=== PATIENT | female | born 1985 | race Caucasian/White ===

== ENCOUNTER 2016-11-02 20:00 | Outpatient (CLI) | payer MEDICAID ==
[~2016-11-02] VITALS: Ht 149.9 cm; Wt 56.3 kg
[2016-11-02 20:17] VITALS: Ht 149.9 cm; Wt 56.3 kg
[2016-11-02 20:19] VITALS: BP 104/50; PULSE 67; RESP 18
[2016-11-02 20:39] LABS: URINE BLOOD (Dip) POC Negative (NEGATIVE)
[2016-11-02 22:20] LABS: ADD UMIC YES; UR ASCORBIC ACID NEGATIVE (NEGATIVE); UR BACTERIA FEW /HPF (NONE SEEN); UR BILIRUBIN (Dip) NEGATIVE (NEGATIVE); UR BLOOD (Dip) NEGATIVE (NEGATIVE); UR CLARITY SLIGHTLY CLOUDY (CLEAR); UR COLOR YELLOW (YELLOW); UR GLUCOSE (Dip) NEGATIVE (NEGATIVE); UR KETONES (Dip) NEGATIVE (NEGATIVE); UR LEUKOCYTE ESTERASE (Dip) 1+ Leu/ul (NEGATIVE); UR NITRITE (Dip) NEGATIVE (NEGATIVE); UR RBC 1 /HPF (0-5); UR SPECIFIC GRAVITY (Dip) 1.025 (1.003-1.030); UR SQUAMOUS EPITHELIAL CELL FEW /HPF (FEW); UR TOTAL PROTEIN (Dip) NEGATIVE (NEGATIVE); UR UROBILINOGEN (Dip) 2+ mg/dL (NEGATIVE)
--- NOTE | 2016-11-02 22:47 | RADRPT ---
PROCEDURE: Obstetrical ultrasound greater than 14 weeks CLINICAL INDICATION: labor TECHNIQUE: Real time sonographic imaging of the gravid uterus is performed transabdominally and mu ltiple static zavala scale and Doppler images are submitted for review as are measurements. The image s are reviewed on the PACS. COMPARISON: No relevant exams are available FINDINGS: The cervical os is closed with a normal cervical length of 3.4 cm. There is a single living intrauterine gestation in cephalic presentation. The heart beat is estimated at 139 bpm. Placenta is posterior and grade 0. There is no evidence of placenta previa or abruption. The amniotic fluid appears qualitatively normal RPTAT:HJJR IMPRESSION: 1. Single viable intrauterine gestation in cephalic presentation with the closed cervix length estim ated at 3.4 cm. 2. Posterior grade 0 placenta without placenta previa or abruption. Physician Katy Date Time Electronically viewed and signed by Physician Katy on 11/02/2016 22:46 /
--- NOTE | 2016-11-02 23:27 | PN ---
Triage Information Date/Time 11/02/1605/17/2319 Reason for visit: back pain for 3days Weeks of Gestation 23w2d /Para primigravida Diabetes: none Hypertention: none Objective Vital Signs Date Time Temp Pulse Resp B/P Pulse Ox O2 Delivery O2 Flow Rate FiO2 11/02/16 20:19 98.6 67 18 104/50 Room Air Heart Rate: 140's Contractions: None Results/Medications Results 24 hrs Laboratory Tests Test 11/02/16 20:20 11/02/16 20:47 Urine Color YELLOW Urine Clarity SLIGHTLY CLOUDY A Urine pH 6.0 Urine Specific [place] 1.025 Urine Ketones NEGATIVE Urine Nitrite NEGATIVE Urine Bilirubin NEGATIVE Urine Urobilinogen 2+ H Urine Leukocyte Esterase 1+ H Urine Microscopic RBC 1 Urine Microscopic WBC 1 Urine Squamous Epithelial Cells FEW Urine Calcium Oxalate Crystals FEW A Urine Bacteria FEW A Urine Hemoglobin NEGATIVE Urine Glucose NEGATIVE Urine Total Protein NEGATIVE Bedside Urine pH (LAB) 6.5 Bedside Urine Protein (LAB) Negative Bedside Urine Glucose (UA) Negative Bedside Urine Ketones (LAB) Negative Bedside Urine Blood Negative Bedside Urine Nitrite (LAB) Negative Bedside Urine Leukocyte Esterase (L Trace H Imaging Results CVL 3.4 closed Disposition: Discharge Assessment/Plan IUP 23w2d back pain NIL Sx improved after hydration Plan discharge home F/U with her OB urine culture sent need to be f/u ISABELLA CASTREJON MD Nov 02, 2016 23:27
--- NOTE | 2016-11-02 23:52 | TRIAGE ---
OB Triage Datetime Report Generated by CPN: 11/02/2016 23:52 Datetime: 11/02/2016 23:22 Stage of : OB Triage Datetime: 11/02/2016 23:10 Stage of : OB Triage Datetime: 11/02/2016 23:06 Stage of : OB Triage Datetime: 11/02/2016 23:03 Stage of : OB Triage Labor Evaluation Frequency: OCCASIONALLY Monitor Mode: External Duration (sec)2399: 50-60 Quality: Mild Heart Rate FHR Baseline Rate: 146 Monitor Mode: Doppler Pain Assessment Pain Scale: 2 Pain Goal: 3 Datetime: 11/02/2016 22:35 Stage of : OB Triage Maternal Assessment Level of Consciousness: Fully Conscious Labor Evaluation Frequency: OCCASIONALLY Monitor Mode: External Duration (sec)2399: 40-50 Heart Rate FHR Baseline Rate: 148 Monitor Mode: Doppler Pain Assessment Pain Scale: 6 Pain Presence: Constant Pain Type: Pressure Pain Goal: 4 Datetime: 11/02/2016 21:44 Contraction Comments: TOCO OUT OF PLACE DUE TO US TECH AT BEDSIDE FOR CL . Datetime: 11/02/2016 21:39 Stage of : OB Triage Maternal Assessment Level of Consciousness: Fully Conscious Labor Evaluation Frequency: NONE Monitor Mode: External Heart Rate FHR Baseline Rate: 142 Monitor Mode: Doppler Pain Assessment Pain Scale: 6 Pain Presence: Constant Pain Type: Pressure Pain Goal: 4 Datetime: 11/02/2016 21:30 Stage of : OB Triage Datetime: 11/02/2016 21:27 Stage of : OB Triage Datetime: 11/02/2016 21:04 Stage of : OB Triage Datetime: 11/02/2016 20:56 Stage of : OB Triage Datetime: 11/02/2016 20:46 Arrived By: Wheelchair Arrived From: Home Chief Complaint: PT C/O BACK PAIN 10/09 Movement: Absent Contractions: Denies/Absent Patient Complaints: Other Initial Plan: TOCO ADN DOPPLAR, PHYSICAL EXAM AND NOTIFY MD. Datetime: 11/02/2016 20:30 Stage of : OB Triage Maternal Assessment Level of Consciousness: Fully Conscious DTR's/Clonus: DTRs 2+; No Clonus Headache: Denies Blurred Vision: No Respiratory Effort: Unlabored; Regular Rhythm Breath Sounds, Left: Clear and Equal Breath Sounds, Right: Clear and Equal Nausea/Vomiting: Denies Lower Extremities Edema: None Upper Extremities Edema: None Temperature Route: Oral Fall Risk Assessment History of Falling: (0) No Labor Evaluation Frequency: NONE Monitor Mode: External Heart Rate FHR Baseline Rate: 148 Monitor Mode: Doppler Pain Assessment Pain Scale: 8 Pain Presence: Constant Pain Type: Pressure Pain Location: Back (Annotations: LEFT ) Datetime: 11/02/2016 20:10 Stage of : OB Triage
== END 2016-11-02 23:24 | disposition home or self-care (01) ==
LOC: OBT 20:00 → L-D 20:01 → OBT 23:24
PROVIDERS: ATTEND Obstetrics & Gynecology
DX: O26.892 Other specified pregnancy related conditions, second trimester (principal); Z3A.23 23 weeks gestation of pregnancy; M54.9 Dorsalgia, unspecified
CPT/HCPCS: 76817; 81001; 87086; Z7500; 81003; G0463

== ENCOUNTER 2017-01-27 16:41 | Outpatient (CLI) | payer MEDICAID ==
[~2017-01-27] VITALS: Ht 152.4 cm; Wt 60.1 kg
[2017-01-27 17:16] VITALS: Ht 152.4 cm; Wt 60.1 kg
[2017-01-27] MEDS ORDERED: LACTATED RINGER'S 1,000 ML IV SCH (17:30)
[2017-01-27 17:54] LABS: BASOPHILS % 0.2 % (0.0-2.0); EOSINOPHILS % 0.3 % (0.0-7.0); HEMATOCRIT 32.5 % (37.0-47.0); HEMOGLOBIN 11.2 g/dl (12.0-16.0); LYMPHOCYTES # 1.7 10^3/ul (0.8-2.9); LYMPHOCYTES % 18.5 % (15.0-51.0); MEAN CORPUSCULAR HEMOGLOBIN 30.9 pg (29.0-33.0); MEAN CORPUSCULAR HGB CONC 34.5 g/dl (32.0-37.0); MEAN CORPUSCULAR VOLUME 89.8 fl (82.0-101.0); MEAN PLATELET VOLUME 9.9 fl (7.4-10.4); MONOCYTE # 0.4 10^3/ul (0.3-0.9); MONOCYTES % 4.9 % (0.0-11.0); NEUTROPHIL # 6.7 10^3/ul (1.6-7.5); NEUTROPHILS % 75.8 % (39.0-77.0); PLATELET COUNT 300 10^3/UL (140-415); RED BLOOD COUNT 3.62 10^6/ul (4.20-5.40); RED CELL DISTRIBUTION WIDTH 13.2 % (11.5-14.5); WHITE BLOOD COUNT 8.9 10^3/ul (4.8-10.8)
--- NOTE | 2017-01-27 17:55 | RADRPT ---
PROCEDURE: Obstetrical ultrasound for biophysical profile CLINICAL INDICATION: Biophysical profile. . TECHNIQUE: Obstetrical ultrasound of the uterus for biophysical profile. Transabdominal views are obtained. COMPARISON: 01/01/2017 FINDINGS: Single intrauterine gestation. Presentation: Cephalic. Placenta: Posterior No evidence of placental abruption. No evidence of placenta previa. breathing movement = 2/2 tone = 2/2 motion = 2/2 DEWEY = 2/2 DEWEY = 14.7 cm heart rate: 132 beats per minute IMPRESSION: Single intrauterine gestation. Biophysical profile 10/07 RPTAT: AADD .Scooby Cai MD, MD Date Time Electronically viewed and signed by .Scooby Cai MD, on 01/27/2017 17:54 .B/
[2017-01-27 18:12] LABS: ALBUMIN 3.5 g/dl (3.3-4.9); ALBUMIN/GLOBULIN RATIO 1.02; BILIRUBIN,INDIRECT 0.2 mg/dl (0-1.1); BILIRUBIN,TOTAL 0.2 mg/dl (0.2-1.3); CALCIUM 8.9 mg/dl (8.4-10.2); CREATININE 0.65 mg/dl (0.44-1.00); POTASSIUM 3.9 mmol/L (3.5-5.1); TOTAL PROTEIN 6.9 g/dl (6.1-8.1)
[2017-01-27] MEDS ORDERED: TERBUTALINE 1 MG/ML INJ SC ONE ×2 (18:30→20:30)
[2017-01-27 19:39] LABS: ADD UMIC YES; UR ASCORBIC ACID NEGATIVE (NEGATIVE); UR BACTERIA FEW /HPF (NONE SEEN); UR BILIRUBIN (Dip) NEGATIVE (NEGATIVE); UR BLOOD (Dip) NEGATIVE (NEGATIVE); UR CLARITY CLEAR (CLEAR); UR COLOR YELLOW (YELLOW); UR GLUCOSE (Dip) NEGATIVE (NEGATIVE); UR KETONES (Dip) NEGATIVE (NEGATIVE); UR LEUKOCYTE ESTERASE (Dip) 1+ Leu/ul (NEGATIVE); UR NITRITE (Dip) NEGATIVE (NEGATIVE); UR RBC 1 /HPF (0-5); UR SPECIFIC GRAVITY (Dip) 1.013 (1.003-1.030); UR SQUAMOUS EPITHELIAL CELL FEW /HPF (FEW); UR TOTAL PROTEIN (Dip) NEGATIVE (NEGATIVE); UR UROBILINOGEN (Dip) NEGATIVE (NEGATIVE)
--- NOTE | 2017-01-28 00:32 | PN ---
Triage Information Date/Time 01/18/17 Reason for visit: generalized itching sensation for 3 weeks Weeks of Gestation 35w4d /Para Diabetes: none Hypertention: none Additional information serum bile acid drawn result pending patient has RX for ursodiol Objective Vital Signs Date Time Temp Pulse Resp B/P Pulse Ox O2 Delivery O2 Flow Rate FiO2 01/27/17 17:17 98.6 Intake and Output 01/27/17 01/27/17 01/28/17 14:59 22:59 06:59 Intake Total 700 ml Balance 700 ml Heart Rate Comments NST reactive Contractions: 6-10 Minutes Apart Exam VE closed and long -3 uc q4-6min resolved after IV hydration and terb Results/Medications Result Diagram: 01/27/17172901/27/17 173 Results 24 hrs Laboratory Tests Test 01/27/17 17:00 01/27/17 17:30 Urine Color YELLOW Urine Clarity CLEAR Urine pH 7.0 Urine Specific [place] 1.013 Urine Ketones NEGATIVE Urine Nitrite NEGATIVE Urine Bilirubin NEGATIVE Urine Urobilinogen NEGATIVE Urine Leukocyte Esterase 1+ H Urine Microscopic RBC 1 Urine Microscopic WBC 3 Urine Squamous Epithelial Cells FEW Urine Bacteria FEW A Urine Hemoglobin NEGATIVE Urine Glucose NEGATIVE Urine Total Protein NEGATIVE White Blood Count 8.9 Red Blood Count 3.62 L Hemoglobin 11.2 L Hematocrit 32.5 L Mean Corpuscular Volume 89.8 Mean Corpuscular Hemoglobin 30.9 Mean Corpuscular Hemoglobin Concent 34.5 Red Cell Distribution Width 13.2 Platelet Count 300 Mean Platelet Volume 9.9 Neutrophils % 75.8 Lymphocytes % 18.5 Monocytes % 4.9 Eosinophils % 0.3 Basophils % 0.2 Nucleated Red Blood Cells % 0.0 Neutrophils # 6.7 Lymphocytes # 1.7 Monocytes # 0.4 Eosinophils # 0.0 Basophils # 0.0 Nucleated Red Blood Cells # 0.0 Sodium Level 137 Potassium Level 3.9 Chloride Level 105 Carbon Dioxide Level 19 L Anion Gap 17 H Blood Urea Nitrogen 9 Creatinine 0.65 Glucose Level 99 Calcium Level 8.9 Total Bilirubin 0.2 Direct Bilirubin 0.00 Indirect Bilirubin 0.2 Aspartate Amino Transf (AST/SGOT) 29 Alanine Aminotransferase (ALT/SGPT) 48 Alkaline Phosphatase 206 H Total Protein 6.9 Albumin 3.5 Globulin 3.40 H Albumin/Globulin Ratio 1.02 Medications Current Medications Lactated Ringer's (Lr) 1,000 ml @ 250 mls/hr Q4H IV Last administered on 01/27t 17:34; Admin Dose 250 MLS/HR; Start 01/27/17 at 17:30 Imaging Results BPP 10/07 DEWEY 14.7 Disposition: Discharge Assessment/Plan IUP 35w4d choleshesis PTL resolved Plan d/s home will be f/u at [facility] prn take ursodiol as RXed ISABELLA CASTREJON MD Jan 28, 2017 00:32
--- NOTE | 2017-01-28 01:46 | TRIAGE ---
OB Triage Datetime Report Generated by CPN: 01/28/2017 01:46 Datetime: 01/27/2017 23:50 Stage of : OB Triage Assessment Type: Triage Labor Evaluation Frequency: Irregular Monitor Mode: External Duration (sec)2399: 40-100 Quality: Mild Pattern: Normal: <= 5 Contractions in 10 Minutes Resting Tone Opdyke: Relaxed Heart Rate FHR Baseline Rate: 150 Monitor Mode: External US Variability: Moderate 6-25 bpm Accelerations: 15X15 Decelerations: None Pain Assessment Pain Scale: 0 Pain Presence: None/Denies Pain Type: N/A Pain Assessment Comments: Pt continues to deny any pain or cramping Datetime: 01/27/2017 23:20 Stage of : OB Triage Pain Assessment Pain Scale: 0 Pain Presence: None/Denies Pain Type: N/A Datetime: 01/27/2017 23:00 Labor Evaluation Frequency: IRRITABILITY NOTED/ IRREGULAR CONTRACTIONS Monitor Mode: External Quality: Mild Pattern: Normal: <= 5 Contractions in 10 Minutes Resting Tone Opdyke: Relaxed Heart Rate FHR Baseline Rate: 145 Monitor Mode: External US FHR Baseline Changes: No Baseline Change Variability: Moderate 6-25 bpm Accelerations: 15X15 Decelerations: None Category: Category I Datetime: 01/27/2017 22:00 Labor Evaluation Frequency: IRRITABILITY NOTED/ IRREGULAR CONTRACTIONS Monitor Mode: External Quality: Mild Pattern: Normal: <= 5 Contractions in 10 Minutes Resting Tone Opdyke: Relaxed Heart Rate FHR Baseline Rate: 145 Monitor Mode: External US FHR Baseline Changes: No Baseline Change Variability: Moderate 6-25 bpm Accelerations: 15X15 Decelerations: None Category: Category I Datetime: 01/27/2017 21:00 Labor Evaluation Frequency: IRRITABILITY NOTED/ IRREGULAR CONTRACTIONS Monitor Mode: External Quality: Mild Pattern: Normal: <= 5 Contractions in 10 Minutes Resting Tone Opdyke: Relaxed Heart Rate FHR Baseline Rate: 135 Monitor Mode: External US FHR Baseline Changes: No Baseline Change Variability: Moderate 6-25 bpm Accelerations: 15X15 Decelerations: None Category: Category I Datetime: 01/27/2017 20:00 Monitor Mode: External Quality: Mild Pattern: Normal: <= 5 Contractions in 10 Minutes Resting Tone Opdyke: Relaxed Contraction Comments: IRRITABILITY NOTED/ IRREGULAR CONTRACTIONS Heart Rate FHR Baseline Rate: 145 Monitor Mode: External US FHR Baseline Changes: No Baseline Change Variability: Moderate 6-25 bpm Accelerations: 15X15 Decelerations: None Category: Category I Datetime: 01/27/2017 19:17 Assessment Type: Triage Maternal Assessment Level of Consciousness: Fully Conscious DTR's/Clonus: DTRs 2+; No Clonus Headache: Denies Blurred Vision: No Respiratory Effort: Unlabored; Regular Rhythm; Equal Expansion Breath Sounds, Left: Clear and Equal Breath Sounds, Right: Clear and Equal Nausea/Vomiting: Denies RUQ Epigastric Pain: Denies Lower Extremities Edema: None Degree: None Upper Extremities Edema: None Degree: None Facial Edema: None Fall Risk Assessment History of Falling: (0) No Secondary Diagnosis: (0) No Ambulatory Aid: (0) Bedrest/Nurse Assist IV Therapy: (0) No Gait: (0) Normal/Bedrest/Immobile Mental Status: (0) Oriented to Own Ability Fall Score: 0 Fall Risk Score Definition: No Risk: No action required Pain Assessment Pain Scale: 0 Pain Presence: None/Denies Datetime: 01/27/2017 19:10 Stage of : OB Triage Datetime: 01/27/2017 19:08 Stage of : OB Triage Maternal Assessment Level of Consciousness: Fully Conscious DTR's/Clonus: DTRs 1+ Headache: Denies Breath Sounds, Left: Clear and Equal Breath Sounds, Right: Clear and Equal Nausea/Vomiting: Denies RUQ Epigastric Pain: Denies Labor Evaluation Frequency: NONE Monitor Mode: External Resting Tone Opdyke: Relaxed Heart Rate FHR Baseline Rate: 135 Monitor Mode: External US Variability: Moderate 6-25 bpm Accelerations: 15X15 Decelerations: None Category: Category I Pain Assessment Pain Scale: 0 Pain Presence: None/Denies Pain Type: N/A Pain Goal: 3 Vaginal Exam Membrane Status: Intact Datetime: 01/27/2017 18:40 Stage of : OB Triage Maternal Assessment Level of Consciousness: Fully Conscious DTR's/Clonus: DTRs 1+ Headache: Denies Breath Sounds, Left: Clear and Equal Breath Sounds, Right: Clear and Equal Nausea/Vomiting: Denies RUQ Epigastric Pain: Denies Labor Evaluation Frequency: 2-4 Monitor Mode: External Duration (sec)2399: 50-80 Quality: Mild Pattern: Normal: <= 5 Contractions in 10 Minutes Resting Tone Opdyke: Relaxed Heart Rate FHR Baseline Rate: 135 Monitor Mode: External US Variability: Moderate 6-25 bpm Accelerations: 15X15 Decelerations: None Category: Category I Pain Assessment Pain Scale: 0 Pain Presence: None/Denies Pain Type: N/A Pain Goal: 3 Vaginal Exam Membrane Status: Intact Datetime: 01/27/2017 18:20 Stage of : OB Triage Maternal Assessment Level of Consciousness: Fully Conscious DTR's/Clonus: DTRs 1+ Headache: Denies Breath Sounds, Left: Clear and Equal Breath Sounds, Right: Clear and Equal Nausea/Vomiting: Denies RUQ Epigastric Pain: Denies Monitor Mode: External Duration (sec)2399: 50-80 Quality: Mild Pattern: Normal: <= 5 Contractions in 10 Minutes Resting Tone Opdyke: Relaxed Heart Rate FHR Baseline Rate: 135 Monitor Mode: External US Variability: Moderate 6-25 bpm Accelerations: 15X15 Decelerations: None Category: Category I Pain Assessment Pain Scale: 0 Pain Presence: None/Denies Pain Type: N/A Pain Goal: 3 Vaginal Exam Membrane Status: Intact Datetime: 01/27/2017 17:21 Maternal Assessment Level of Consciousness: Fully Conscious DTR's/Clonus: DTRs 1+ Headache: Denies Blurred Vision: No Respiratory Effort: Unlabored Breath Sounds, Left: Clear and Equal Breath Sounds, Right: Clear and Equal Nausea/Vomiting: Denies RUQ Epigastric Pain: Denies Facial Edema: None Labor Evaluation Frequency: 4-7 Monitor Mode: External Duration (sec)2399: 50-80 Quality: Mild Pattern: Normal: <= 5 Contractions in 10 Minutes Resting Tone Opdyke: Relaxed Heart Rate FHR Baseline Rate: 135 Monitor Mode: External US Variability: Moderate 6-25 bpm Accelerations: 15X15 Decelerations: None Category: Category I Pain Assessment Pain Scale: 0 Pain Presence: None/Denies Pain Type: N/A Pain Goal: 3 Vaginal Exam Membrane Status: Intact Datetime: 01/27/2017 16:57 Assessment Type: Triage Maternal Assessment Level of Consciousness: Fully Conscious DTR's/Clonus: DTRs 2+; No Clonus Headache: Denies Blurred Vision: No Respiratory Effort: Unlabored; Regular Rhythm; Equal Expansion Breath Sounds, Left: Clear and Equal Breath Sounds, Right: Clear and Equal Nausea/Vomiting: Denies RUQ Epigastric Pain: Denies Lower Extremities Edema: None Degree: None Upper Extremities Edema: None Degree: None Facial Edema: None Fall Risk Assessment History of Falling: (0) No Secondary Diagnosis: (0) No Ambulatory Aid: (0) Bedrest/Nurse Assist IV Therapy: (0) No Gait: (0) Normal/Bedrest/Immobile Mental Status: (0) Oriented to Own Ability Fall Score: 0 Fall Risk Score Definition: No Risk: No action required Datetime: 01/27/2017 16:33 Time of Arrival: 01/27/2017 16:33 EGA: 35.4 Arrived By: Ambulatory Arrived From: Office Chief Complaint: PT CAME IN C/O OF SEVERE ITCHING SINCE 3 WEEKS AGO. PT SEEING AT CLINIC AND REFER RED HERE Movement: Present Contractions: Denies/Absent Rupture of Membranes: Denies Vaginal Discharge: Denies Recent Sexual Intercouse: Denies Abdominal Trauma: Not Applicable Additional Patient Complaints: NONE Initial Plan: MONITOR, NST, BPP, CMP, CBC, UA , IV HYDRATION Datetime: 11/02/2016 20:46 Time of Arrival: 11/02/2016 19:54 EGA: 23.2 Movement: Present Time Provider Notified: 11/02/2016 21:02 (Annotations: Data stored by CPN on behalf of user)
== END 2017-01-27 23:50 | disposition home or self-care (01) ==
LOC: OBT 16:41 → L-D 16:42 → OBT 23:50
PROVIDERS: ATTEND Obstetrics & Gynecology
DX: O26.893 Other specified pregnancy related conditions, third trimester (principal); Z3A.35 35 weeks gestation of pregnancy; L29.9 Pruritus, unspecified
CPT/HCPCS: 36415; 76818; 80053; 81001; 85025; 96360; 96361; 96372; J3105; J7120; Z7500; G0463

== ENCOUNTER 2017-02-06 07:30 | Inpatient (IN) | payer MEDICAID ==
[~2017-02-06] VITALS: Ht 152.4 cm; Wt 61.0 kg
[2017-02-06] MEDS ORDERED: BUTORPHANOL 2 MG INJ IV PRN (08:30)
[2017-02-06] MEDS ORDERED: IBUPROFEN 600 MG TAB PO PRN (08:30)
[2017-02-06] MEDS ORDERED: OXYTOCIN 30 UNITS/LR 500 ML IV PRN (08:30)
[2017-02-06] MEDS ORDERED: CARBOPROST 250 MCG INJ IM PRN (08:30)
[2017-02-06] MEDS ORDERED: MISOPROSTOL 200 MCG TAB PR PRN (08:30)
[2017-02-06] MEDS ORDERED: LIDOCAINE 1% (MPF) 30 ML INJ INJ PRN (08:30)
[2017-02-06] MEDS ORDERED: METHYLERGONOVINE 0.2 MG INJ IM PRN (08:30)
[2017-02-06] MEDS ORDERED: OXYTOCIN 30 UNITS/LR 500 ML IV SCH ×2 (08:30)
[2017-02-06 10:05] LABS: BASOPHILS % 0.4 % (0.0-2.0); EOSINOPHILS % 0.4 % (0.0-7.0); HEMOGLOBIN 11.7 g/dl (12.0-16.0); MEAN CORPUSCULAR HEMOGLOBIN 30.6 pg (29.0-33.0); MEAN CORPUSCULAR HGB CONC 34.4 g/dl (32.0-37.0); MEAN PLATELET VOLUME 10.1 fl (7.4-10.4); MONOCYTE # 0.3 10^3/ul (0.3-0.9); MONOCYTES % 4.1 % (0.0-11.0); NEUTROPHIL # 5.8 10^3/ul (1.6-7.5); NEUTROPHILS % 70.7 % (39.0-77.0); PLATELET COUNT 312 10^3/UL (140-415); RED BLOOD COUNT 3.82 10^6/ul (4.20-5.40); RED CELL DISTRIBUTION WIDTH 13.5 % (11.5-14.5); WHITE BLOOD COUNT 8.1 10^3/ul (4.8-10.8)
[2017-02-06 10:13] VITALS: Ht 152.4 cm; Wt 61.0 kg
[2017-02-06 10:16] VITALS: BP 117/63; PULSE 82; RESP 18
[2017-02-06] MEDS: LACTATED RINGER'S 1,000 ML IV SCH ×3 (10:19→21:15)
[2017-02-06 10:25] LABS: INR 0.82; PROTIME 11.4 Sec (11.9-14.9); PT RATIO 0.9
[2017-02-06 10:27] LABS: PARTIAL THROMBOPLASTIN TIME 24.1 Sec (25.0-35.0)
[2017-02-06] MEDS ORDERED: DINOPROSTONE 10 MG VAG SUPP VAG ONE (11:00)
--- NOTE | 2017-02-06 11:04 | RADRPT ---
PROCEDURE: US OB. CLINICAL INDICATION: Induction TECHNIQUE: Multiple sonographic images of the pelvis were obtained. The images were reviewed on a PACS workstation. COMPARISON: No prior studies are available for comparison. FINDINGS: There is a single live intrauterine . cardiac activity is identified at a rate of 14 4 beats per minute. presentation is cephalic. Placenta is posterior grade II. Biophysical profile score is as follows: Breathing 2 Movements 2 Tone 2 Fluid volume 2 Amniotic fluid index = 9.4 cm Total biophysical profile score = 8/8 IMPRESSION: Biophysical profile score = 8/8 RPTAT: HH .David Jackson MD, MD Date Time Electronically viewed and signed by .David Jackson MD, on 02/06/2017 11:04 .W/
--- NOTE | 2017-02-06 11:12 | RADRPT ---
PROCEDURE: US OB. CLINICAL INDICATION: Size and dates , induction TECHNIQUE: Multiple sonographic images of the pelvis and gravid uterus were obtained. The images were reviewed on a PACS workstation. COMPARISON: No prior studies are available for comparison. FINDINGS: There is a single viable intrauterine gestation. Cardiac activity is present with 140 beats per min marcie. There is a vertex presentation. The placenta is posterior. There is no evidence for an abruption or placenta previa. Measurements were made in order to determine age. The results are as follows: BPD =8.3 cm HC =31 cm AC =33.5 cm FL =6.7 cm Estimated gestational age of approximately 34 weeks and 6 days based on ultrasound measurements. Clinical age: 37 weeks and 0 days. The estimated date of delivery is 03/14/17, based on ultrasound measurements. The EFW = 2785 g, 26.3%, based on LMP age. RPTAT: AA IMPRESSION: Single viable intrauterine gestation of approximately 34 weeks and 6 days based on ultrasound measu rements. .Wood Keith MD, MD Date Time Electronically viewed and signed by .Wood Keith MD, on 02/06/2017 11:11 .S/
[2017-02-06] MEDS ORDERED: PNV11TAB PO (11:29)
[2017-02-06] MEDS ORDERED: URSO300C21 PO (11:30)
[2017-02-06] MEDS ORDERED: FERR15DR5 PO (11:31)
[2017-02-06] MEDS ORDERED: IRON1TAB78 PO (11:32)
--- NOTE | 2017-02-06 15:23 | HP ---
Date/Time of Note Date/Time of Note DATE: 02/06/17 TIME: 15:18 OB - History Hx of Present Free Text/Dictation 31-year-old female 1 para 0 at 37 weeks admitted for induction of labor because of cholestasis Last Menstrual Period: Jun 12, 2016 Estimated Due Date: Feb 27, 2017 : 1 Para: 0 Care: Good Care Ultrasounds: No ultrasounds, Normal mid trimester US Obstetrical Complications: Other (Cholestasis in ) Medical Complications: None Past Family/Social History * Past Medical, Surgical, Family and Obstetric Histories reviewed from chart. Blood Type: O+ Rubella: immune RPR/VDRL: Negative GBS Status: Negative HBsAG: Negative OB Admission Exam Vital Signs Vital Signs Vital Signs Date Time Temp Pulse Resp B/P Pulse Ox O2 Delivery O2 Flow Rate FiO2 02/06/17 10:16 98.4 82 18 117/63 97 Physical Exam HEENT: WNL Heart: Rhythm Normal Lungs: Clear, Equal Abdomen: WNL Extremities: Normal Reflexes: Normal Cervical Dilatation: Fingertip Effacement: 0% Station: -3 Membranes: Intact Heart Rate: 140's Accelerations: Accelerations Present Decelerations: No Decelerations Varibility: Marked Contractions on Admission: None Last 72 hours Lab Results CBC & BMP 02/06/17 09:45 OB Assessment/Plan Reason for admission: induction of labor Other Assessment: Cholestasis of 37 weeks gestation Other plan: Start induction with Cervidil GEMINI TALAVERA MD Feb 06, 2017 15:23
[2017-02-06] MEDS: URSODIOL 300 MG CAP PO SCH (17:33)
[2017-02-07] MEDS: LACTATED RINGER'S 1,000 ML IV SCH ×3 (05:08→22:50)
[2017-02-07] MEDS: URSODIOL 300 MG CAP PO SCH ×3 (07:51→17:15)
[2017-02-07] MEDS ORDERED: DINOPROSTONE 10 MG VAG SUPP VAG ONE (13:00)
[2017-02-08] MEDS: LACTATED RINGER'S 1,000 ML IV SCH ×2 (07:32→17:07)
[2017-02-08] MEDS: URSODIOL 300 MG CAP PO SCH ×3 (08:30→17:30)
--- NOTE | 2017-02-08 10:23 | PN ---
Date/Time of Note Date/Time of Note Late entry DATE: 02/07/17 OB Subjective Subjective Subjective Patient has no complaint of uterine contractions OB Objective Objective Objective Vital signs stable General physical exam is normal On electronic monitoring heart tones appeared reactive Cervix stayed long and closed OB Assessment/Plan Reason for admission: induction of labor Other Assessment: 37 weeks gestation with cholestasis Other plan: Repeat Cervidil GEMINI TALAVERA MD Feb 08, 2017 10:23
--- NOTE | 2017-02-08 10:35 | PN ---
Date/Time of Note Date/Time of Note DATE: 02/08/17 TIME: 10:34 OB Subjective Subjective Subjective No complaint of labor contractions OB Objective Objective Objective Vital signs stable in general physical exam is unchanged Cervix is 30% 1 cm mid position OB Assessment/Plan Reason for admission: induction of labor Other Assessment: 37 weeks gestation with cholestasis Other plan: We will assess the patient in this p.m. or next a.m. If patient cervical dilatation is advanced 2 cm with proceed with Pitocin augmentation If not 2 cm we will consider reducing patient home with repeating the process and 24-48 hour GEMINI TALAVERA MD Feb 08, 2017 10:35
[2017-02-09] MEDS: LACTATED RINGER'S 1,000 ML IV SCH ×2 (01:29→07:57)
[2017-02-09] MEDS: URSODIOL 300 MG CAP PO SCH ×3 (07:56→17:36)
--- NOTE | 2017-02-09 16:32 | RADRPT ---
PROCEDURE: US OB. CLINICAL INDICATION: well-being TECHNIQUE: Multiple sonographic images of the pelvis were obtained. The images were reviewed on a PACS workstation. COMPARISON: No prior studies are available for comparison. FINDINGS: There is a single live intrauterine . cardiac activity is identified at a rate of 12 6 beats per minute. presentation is cephalic. Placenta is fundal the left grade II. Biophysical profile score is as follows: Breathing 2 Movements 2 Tone 2 Fluid volume 2 Amniotic fluid index = 12.0 cm Total biophysical profile score = 8/ IMPRESSION: Biophysical profile score = 10/07 RPTAT: HH .David Jackson MD, MD Date Time Electronically viewed and signed by .David Jackson MD, on 02/09/2017 16:32 .W/
--- NOTE | 2017-02-09 17:34 | DS ---
Date/Time of Note Date/Time of Note Patient with no cervical change 2 days cervix stayed at 3040% on 1 cm with presenting part vertex at -2 -3 station After discussing the situation with the patient this service intends to reinduce patient in 48 hours DATE: 02/09/17 TIME: 17:32 Obstetrical Discharge Record Final Diagnosis Final Diagnosis: Term not delivered Other Final Diagnosis Failed induction Complications Other (Cholestasis of ) Induction: Yes Condition on Discharge Physical Assessment Voiding: Yes Bowel Movement: Yes Breast: Soft, non-tender, Filling Fundus: Other () Abdomen and Incision: Abdomen is gravid fundal height was 38 estimation of weight was 3000 g plus minus Episiotomy: Not applicable Calf Tenderness: No Patient Condition: Good GEMINI TALAVERA MD Feb 09, 2017 17:33
--- NOTE | 2017-02-09 17:35 | PD.PPDC ---
COMPLIANCE SPEC Discharge Instruction Provider Information Physician Information 31-year-old female admitted for induction of labor because of cholestasis and had failed induction This service intends to restart induction of 48 hours Patient had normal biophysical profile and reactive NST in hospital Diagnosis Final Diagnosis: Failed induction Condition Patient Condition: Good Diet Diet: Resume Regular Diet Activity/Restrictions Activity: Normal Activity May Shower Restrictions: Nothing in the Vagina Follow-up Follow-up with Physician: 2, Day/Days (Labor and delivery for induction) Return to clinic for OB Instructions: Breast Tenderness Depression Blurried Vision Headache Comment: Refer back to labor and delivery at 48 hour for induction GEMINI TALAVERA MD Feb 09, 2017 17:35
== END 2017-02-09 18:10 | disposition home or self-care (01) | DRG 775 ==
LOC: L-D 08:12
PROVIDERS: ADMIT Obstetrics & Gynecology; ATTEND Obstetrics & Gynecology
DX: O26.62 Liver and biliary tract disorders in childbirth (principal); K83.1 Obstruction of bile duct; O47.1 False labor at or after 37 completed weeks of gestation; Z3A.37 37 weeks gestation of pregnancy
CPT/HCPCS: 76816; 76818; 85025; 85610; 85730; 86592; 86900; 86901; 87340; J7120

== ENCOUNTER 2017-02-10 14:10 | Inpatient (IN) | payer MEDICAID ==
[~2017-02-10] VITALS: Ht 152.4 cm; Wt 60.7 kg
[~2017-02-10 14:10] MED LIST: IRON1TAB78 PO; PNV11TAB PO; URSO300C21 PO
[2017-02-10 14:29] VITALS: Ht 152.4 cm; Wt 60.7 kg
[2017-02-10 14:30] VITALS: BP 107/56; PULSE 88; RESP 18
--- NOTE | 2017-02-10 16:40 | RADRPT ---
PROCEDURE: US OB biophysical profile. CLINICAL INDICATION: Decreased movements. Possible leaking amniotic fluid. TECHNIQUE: Multiple sonographic images of the pelvis were obtained. The images were reviewed on a PACS workstation. COMPARISON: 02/09/2017 FINDINGS: There is a viable intrauterine gestation. There is a normal amount of amniotic fluid with an DEWEY = 14.7 cm. Cardiac activity is present with 137 beats per minute. The placenta is posterior. No evidence of placenta previa or abruption. Biophysical profile: movement 2/2 tone 2/2. breathing 2/2 DEWEY 2/2 Total 10/07 IMPRESSION: Normal biophysical profile. Estimated gestational age: 37 weeks and 4 days RPTAT:AAJJ Physician Bronson Date Time Electronically viewed and signed by Physician Bronson on 02/10/2017 16:40 /
--- NOTE | 2017-02-10 17:17 | HP ---
Date/Time of Note Date/Time of Note DATE: 02/10/17 TIME: 17:14 OB - History Hx of Present Free Text/Dictation 31-year-old female admitted in latent phase of labor complaining of a spontaneous rupture of membrane at 39+ weeks Chief Complaint: Spontaneous rupture of membranes Last Menstrual Period: May 08, 2016 Estimated Due Date: Feb 12, 2017 : 3 Para: 2 Care: Good Care Ultrasounds: Normal mid trimester US Obstetrical Complications: None Medical Complications: None Past Family/Social History * Past Medical, Surgical, Family and Obstetric Histories reviewed from chart. Blood Type: O+ Rubella: immune RPR/VDRL: Negative GBS Status: Negative HBsAG: Negative OB Admission Exam Vital Signs Vital Signs Vital Signs Date Time Temp Pulse Resp B/P Pulse Ox O2 Delivery O2 Flow Rate FiO2 02/10/17 14:30 98.9 88 18 107/56 96 Room Air Physical Exam HEENT: WNL Heart: Rhythm Normal Lungs: Clear, Equal Abdomen: WNL Extremities: Normal Reflexes: Normal Cervical Dilatation: 3cm Effacement: 75% Station: -3 Membranes: Ruptured Amniotic Fluid: Clear Heart Rate: 130's Accelerations: Accelerations Present Decelerations: No Decelerations Varibility: Marked Contractions on Admission: 6-10 Minutes Apart Date/Time Contractions Began: February 10, 2017 few hours prior to admission Frequency of Contractions: Every 10-15 minutes Duration: Over 60 seconds Intensity: Mild OB Assessment/Plan Other Assessment: Term gestation Spontaneous rupture of membranes Other plan: We will try to augment labor with Pitocin GEMINI TALAVERA MD Feb 10, 2017 17:17
--- NOTE | 2017-02-10 17:44 | HP ---
Date/Time of Note Date/Time of Note DATE: 02/10/17 TIME: 17:41 OB - History Hx of Present Free Text/Dictation Admitted for re-augmentation of labor because of spontaneous contractions and a slight advancement of his cervical dilatation over 1 day Last Menstrual Period: Jun 13, 2007 Estimated Due Date: Feb 27, 2017 : 1 Para: 0 Care: Good Care Ultrasounds: Normal mid trimester US Obstetrical Complications: Other (Cholestasis of ) Medical Complications: None Past Family/Social History * Past Medical, Surgical, Family and Obstetric Histories reviewed from chart. Blood Type: O+ Rubella: immune RPR/VDRL: Negative GBS Status: Negative HBsAG: Negative OB Admission Exam Vital Signs Vital Signs Vital Signs Date Time Temp Pulse Resp B/P Pulse Ox O2 Delivery O2 Flow Rate FiO2 02/10/17 14:30 98.9 88 18 107/56 96 Room Air Physical Exam HEENT: WNL Heart: Rhythm Normal Lungs: Clear, Equal Abdomen: WNL Extremities: Normal Reflexes: Normal Cervical Dilatation: 2cm Effacement: 50% Station: -3 Membranes: Intact Heart Rate: 140's Accelerations: Accelerations Present Decelerations: No Decelerations Varibility: Marked Contractions on Admission: < 5 Minutes Apart Date/Time Contractions Began: February 10, 2017 in a.m. Frequency of Contractions: Every 3 4 minutes Intensity: Mild OB Assessment/Plan Other Assessment: Cholestasis of at 37+ weeks Other plan: Augment labor with Pitocin GEMINI TALAVERA MD Feb 10, 2017 17:44
[2017-02-10] MEDS ORDERED: LIDOCAINE 1% (MPF) 30 ML INJ INJ PRN (18:00)
[2017-02-10] MEDS ORDERED: OXYTOCIN 30 UNITS/LR 500 ML IV SCH (18:00)
[2017-02-10] MEDS ORDERED: MISOPROSTOL 200 MCG TAB PR PRN (18:00)
[2017-02-10] MEDS ORDERED: OXYTOCIN 30 UNITS/LR 500 ML IV PRN (18:00)
[2017-02-10] MEDS ORDERED: METHYLERGONOVINE 0.2 MG INJ IM PRN (18:00)
[2017-02-10] MEDS ORDERED: CARBOPROST 250 MCG INJ IM PRN (18:00)
[2017-02-10] MEDS ORDERED: IBUPROFEN 600 MG TAB PO PRN (18:00)
[2017-02-10] MEDS ORDERED: BUTORPHANOL 2 MG INJ IV PRN (18:00)
[2017-02-10] MEDS: LACTATED RINGER'S 1,000 ML IV SCH ×2 (18:09→20:30)
[2017-02-10 18:29] LABS: BASOPHILS % 0.2 % (0.0-2.0); EOSINOPHILS % 0.1 % (0.0-7.0); HEMATOCRIT 34.9 % (37.0-47.0); HEMOGLOBIN 12.2 g/dl (12.0-16.0); LYMPHOCYTES # 1.5 10^3/ul (0.8-2.9); LYMPHOCYTES % 13.7 % (15.0-51.0); MEAN CORPUSCULAR VOLUME 88.6 fl (82.0-101.0); MEAN PLATELET VOLUME 9.7 fl (7.4-10.4); MONOCYTE # 0.3 10^3/ul (0.3-0.9); MONOCYTES % 2.8 % (0.0-11.0); NEUTROPHIL # 8.9 10^3/ul (1.6-7.5); NEUTROPHILS % 82.7 % (39.0-77.0); PLATELET COUNT 325 10^3/UL (140-415); RED BLOOD COUNT 3.94 10^6/ul (4.20-5.40); RED CELL DISTRIBUTION WIDTH 13.3 % (11.5-14.5); WHITE BLOOD COUNT 10.7 10^3/ul (4.8-10.8)
[2017-02-10 18:45] LABS: INR 0.93; PROTIME 12.5 Sec (11.9-14.9)
[2017-02-10 18:46] LABS: PARTIAL THROMBOPLASTIN TIME 25.6 Sec (25.0-35.0)
[2017-02-11] MEDS: LACTATED RINGER'S 1,000 ML IV SCH ×3 (04:31→21:08)
--- NOTE | 2017-02-11 19:48 | PN ---
Date/Time of Note Date/Time of Note DATE: 02/11/17 TIME: 19:47 OB Subjective Subjective Subjective No complaint of labor contractions OB Objective Objective Objective Vital signs are normal on general physical exam is unchanged Cervical exam is 2 cm, 60/70% effaced, presenting part is vertex at -2 station Artificial rupture of membranes occurred Amniotic fluid appears clear We will continue with Pitocin augmentation OB Assessment/Plan Reason for admission: induction of labor Other Assessment: 37+ weeks gestation Cholestasis of Other plan: Continue with Pitocin augmentation after artificial rupture GEMINI TALAVERA MD Feb 11, 2017 19:48
[2017-02-11] MEDS: LACTATED RINGER'S 1,000 ML IV PRN ×2 (21:19→22:25)
[2017-02-11] MEDS ORDERED: FENTAnyl 2MCG/ML-ROPIV 0.2% 100 ML ONE (21:25)
[2017-02-11] MEDS ORDERED: OXYTOCIN 30 UNITS/LR 500 ML IV SCH ×2 (21:30)
[2017-02-11] MEDS ORDERED: morphine 2 MG INJ IV PRN (22:00)
[2017-02-11] MEDS ORDERED: morphine 4 MG/ML VIAL IV PRN (22:00)
[2017-02-11] MEDS ORDERED: KETOROLAC 30 MG INJ IV PRN (22:00)
[2017-02-11] MEDS ORDERED: ZOLPIDEM 5 MG TAB PO PRN (22:00)
[2017-02-11] MEDS ORDERED: NALOXONE (0.4 MG/ML) INJ IV PRN (22:00)
[2017-02-11] MEDS ORDERED: ONDANSETRON 4 MG INJ IV PRN (22:00)
[2017-02-11] MEDS ORDERED: FENTAnyl 2MCG/ML-ROPIV 0.2% 100 ML BAG EPI SCH (22:00)
[2017-02-11] MEDS ORDERED: DIPHENHYDRAMINE 50 MG INJ IV PRN (22:00)
[2017-02-12] MEDS ORDERED: AMPICILLIN 2 GM/NS (PMX) 100 ML IV ONE (04:30)
[2017-02-12] MEDS: LACTATED RINGER'S 1,000 ML IV SCH (07:40)
[2017-02-12] MEDS ORDERED: AMPICILLIN 1 GM/NS (PMX) 50 ML IV SCH (08:30)
--- NOTE | 2017-02-12 10:41 | LDN ---
Date/Time of Note Date/Time of Note DATE: 02/12/17 TIME: 10:38 Delivery Summary Vacuum extraction of a viable over midline episiotomy with Apgars 8 and 9 Vacuum extraction was done because of the variable deceleration of heart tones and tachycardia Weeks of Gestation 37 weeks and 6 days Assisted Vaginal Delivery: Vacuum (Vacuum extraction was done because of variable deceleration of FHTs in tachycardia) Placenta Delivered: Spontaneously, Intact & Complete Meconium: Particulate Episiotomy: Yes Indication for episiotomy Vacuum extraction Shortening of a second stage because of a variable deceleration of heart tones Perineal laceration: 0 Laceration repair: Midline episiotomy was repaired in layers using 2-0 Vicryl in deep layers 2-0 chromic and superficial layer Anesthesia type: Epidural Estimated blood loss: 500 Sponge & Needle done & correct: Yes All needle counts correct: Yes Any foreign bodies felt in the: No Problems: Delivery Information Sex Infant Sex: female Apgars 1 Minute: 8 5 Minute: 9 Suctioning Nose & mouth suctioned at jerome: Yes Delee suction performed: No Umbilical Cord Umbilical cord with: 3 Vessels Cord presentations: no nuchal cord Cord Blood was obtained: Yes Mother & Baby Disposition Disposition Mom & Baby to Maternity; Good: Yes (Mother and baby were recovered in good condition) Mom transferred to: Other (Maternity) Baby to NICU: No GEMINI TALAVERA MD Feb 12, 2017 10:41
[2017-02-12 13:00] VITALS: BP 105/66; PULSE 98; RESP 18
[2017-02-12 13:30] VITALS: BP 100/54; PULSE 95; RESP 18
[2017-02-12] MEDS ORDERED: OXYTOCIN 30 UNITS/LR 500 ML IV PRN (14:30)
[2017-02-12] MEDS ORDERED: LANOLIN 7 GM TUBE TOP PRN (14:30)
[2017-02-12] MEDS ORDERED: HYDROCODONE/APAP (5/325) TAB PO PRN ×2 (14:30)
[2017-02-12] MEDS ORDERED: CARBOPROST 250 MCG INJ IM PRN (14:30)
[2017-02-12] MEDS ORDERED: WITCH HAZEL/GLYCERIN PAD PR PRN (14:30)
[2017-02-12] MEDS ORDERED: BENZOCAINE 20% 56 ML SPRAY TOP PRN (14:30)
[2017-02-12] MEDS ORDERED: METHYLERGONOVINE 0.2 MG INJ IM PRN (14:30)
[2017-02-12] MEDS ORDERED: DIBUCAINE 1% 30 GM OINT PR PRN (14:30)
[2017-02-12] MEDS ORDERED: MISOPROSTOL 200 MCG TAB PR PRN (14:30)
[2017-02-12] MEDS ORDERED: ZOLPIDEM 5 MG TAB PO PRN (14:30)
[2017-02-12 16:00] VITALS: BP 99/54; PULSE 96; RESP 18
[2017-02-12] MEDS: LACTATED RINGER'S 1,000 ML IV* SCH ×2 (16:35→22:03)
[2017-02-12] MEDS: IBUPROFEN 600 MG TAB PO SCH (18:43)
[2017-02-12] MEDS: CEPHALEXIN 500 MG CAP PO SCH (18:43)
[2017-02-12 21:00] VITALS: BP 103/57; PULSE 102; RESP 20
[2017-02-12] MEDS: MAGNESIUM HYDROXIDE 30ML CUP PO SCH ×2 (21:00→21:29)
[2017-02-12] MEDS: SENNA/DOCUSATE NA (8.6MG/50MG) TAB PO SCH (21:29)
[2017-02-13] VITALS: BP 90/52; PULSE 72; RESP 19
[2017-02-13] MEDS: CEPHALEXIN 500 MG CAP PO SCH ×4 (00:23→17:51)
[2017-02-13] MEDS: IBUPROFEN 600 MG TAB PO SCH ×4 (00:23→17:52)
[2017-02-13 04:45] VITALS: BP 95/48; PULSE 76; RESP 20
[2017-02-13 08:00] VITALS: BP 88/55; PULSE 79; RESP 18
[2017-02-13 10:42] LABS: BASOPHIL # 0.1 10^3/ul (0.0-0.1); BASOPHILS % 0.2 % (0.0-2.0); EOSINOPHILS # 0.1 10^3/ul (0.0-0.5); EOSINOPHILS % 0.3 % (0.0-7.0); HEMATOCRIT 25.4 % (37.0-47.0); HEMOGLOBIN 8.7 g/dl (12.0-16.0); LYMPHOCYTES % 14.6 % (15.0-51.0); MEAN CORPUSCULAR HEMOGLOBIN 30.7 pg (29.0-33.0); MEAN CORPUSCULAR HGB CONC 34.3 g/dl (32.0-37.0); MEAN CORPUSCULAR VOLUME 89.8 fl (82.0-101.0); MONOCYTE # 0.9 10^3/ul (0.3-0.9); MONOCYTES % 4.2 % (0.0-11.0); NEUTROPHIL # 16.5 10^3/ul (1.6-7.5); PLATELET COUNT 283 10^3/UL (140-415); RED BLOOD COUNT 2.83 10^6/ul (4.20-5.40); RED CELL DISTRIBUTION WIDTH 13.5 % (11.5-14.5); WHITE BLOOD COUNT 20.6 10^3/ul (4.8-10.8)
--- NOTE | 2017-02-13 14:38 | PD.PPDC ---
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
[2017-02-13] MEDS ORDERED: IBUP-1542 PO (14:39)
[2017-02-13 17:03] VITALS: BP 96/50; RESP 16
[2017-02-13 20:30] VITALS: BP 97/48; PULSE 60; RESP 20
[2017-02-13] MEDS: SENNA/DOCUSATE NA (8.6MG/50MG) TAB PO SCH (21:00)
[2017-02-13] MEDS: MAGNESIUM HYDROXIDE 30ML CUP PO SCH (21:00)
[2017-02-14] MEDS: CEPHALEXIN 500 MG CAP PO SCH ×3 (00:26→11:50)
[2017-02-14] MEDS: IBUPROFEN 600 MG TAB PO SCH ×3 (00:26→11:50)
[2017-02-14 04:00] VITALS: BP 96/52; PULSE 62; RESP 19
[2017-02-14 08:00] VITALS: BP 100/55; PULSE 54; RESP 17
[2017-02-14] MEDS: MAGNESIUM HYDROXIDE 30ML CUP PO SCH (09:00)
[2017-02-14] MEDS ORDERED: DIPHTH/TET/ACEL PERTUSS (ADULT) 0.5 ML VIAL IM* ONE (09:00)
[2017-02-14] MEDS: SENNA/DOCUSATE NA (8.6MG/50MG) TAB PO SCH (09:00)
[2017-02-14] MEDS ORDERED: MEASLES,MUMPS,RUBELLA VACCINE INJ SC* ONE (09:00)
[2017-02-14] MEDS ORDERED: VARICELLA VACCINE LIVE/PF 1,350 UNIT/0.5 ML ML SC* ONE (09:00)
[2017-02-14 10:53] LABS: BASOPHILS % 0.1 % (0.0-2.0); EOSINOPHILS % 0.2 % (0.0-7.0); HEMATOCRIT 24.3 % (37.0-47.0); HEMOGLOBIN 8.2 g/dl (12.0-16.0); LYMPHOCYTES # 1.6 10^3/ul (0.8-2.9); LYMPHOCYTES % 13.6 % (15.0-51.0); MEAN CORPUSCULAR HEMOGLOBIN 30.3 pg (29.0-33.0); MEAN CORPUSCULAR HGB CONC 33.7 g/dl (32.0-37.0); MEAN CORPUSCULAR VOLUME 89.7 fl (82.0-101.0); MEAN PLATELET VOLUME 9.7 fl (7.4-10.4); MONOCYTE # 0.3 10^3/ul (0.3-0.9); MONOCYTES % 2.7 % (0.0-11.0); NEUTROPHIL # 9.7 10^3/ul (1.6-7.5); NEUTROPHILS % 82.5 % (39.0-77.0); PLATELET COUNT 292 10^3/UL (140-415); RED BLOOD COUNT 2.71 10^6/ul (4.20-5.40); RED CELL DISTRIBUTION WIDTH 13.4 % (11.5-14.5); WHITE BLOOD COUNT 11.8 10^3/ul (4.8-10.8)
== END 2017-02-14 17:35 | disposition home or self-care (01) | DRG 775 ==
LOC: L-D 14:10 → OBT 14:10 → L-D 17:45 → OBT 17:45 → L-D 18:48 → PP1 02-12 12:54
PROVIDERS: ADMIT Obstetrics & Gynecology; ATTEND Obstetrics & Gynecology
PROC: 10D07Z6 Extraction of Products of Conception, Vacuum, Via Natural or Artificial Opening (ICD-10-PCS; principal; 2017-02-12)
PROC: 0W8NXZZ Division of Female Perineum, External Approach (ICD-10-PCS; 2017-02-12)
DX: O26.62 Liver and biliary tract disorders in childbirth (principal); K83.1 Obstruction of bile duct; O76 Abnormality in fetal heart rate and rhythm complicating labor and delivery; Z3A.37 37 weeks gestation of pregnancy; Z37.0 Single live birth
CPT/HCPCS: 62319; 76818; 84112; 85025; 85610; 85730; 86592; 86900; 86901; 87340; 90715; 90716; 99464; G0463; J0290; J2405; J2590; J3010; J7120

== ENCOUNTER 2017-11-02 20:15 | Emergency (ER) | END 2017-11-02 22:55 | disposition home or self-care (01) ==

== ENCOUNTER 2017-11-06 17:36 | Emergency (ER) | END 2017-11-06 21:54 | disposition home or self-care (01) ==

== ENCOUNTER 2018-05-20 12:19 | Emergency (ER) | payer MEDICAID ==
[~2018-05-20] VITALS: Ht 157.5 cm; Wt 51.9 kg
[~2018-05-20 12:19] MED LIST changes: +ACET1TAB40 PO; +IBUP-1542 PO; -IRON1TAB78 PO; -PNV11TAB PO; -URSO300C21 PO
[2018-05-20 12:32] VITALS: BP 157/66; PULSE 74; RESP 18; Ht 157.5 cm; Wt 51.9 kg
[2018-05-20] MEDS ORDERED: ACET-141 PO (16:55)
--- NOTE | 2018-05-20 16:57 | ERD ---
ER Documentation Chief Complaint Chief Complaint vag bleed, pelvic pain x 3 days; 6 wks HPI 33-year-old female presents for vaginal bleeding and pelvic pain times 3 days. She is currently 6 weeks . Pelvic pain is noted to be 5 out of 10. She denies any fevers. She is eating normally. She denies diarrhea or vomiting. She is A1. She denies any significant past medical history. ROS All systems reviewed and are negative except as per history of present illness. Medications Home Meds Active Scripts Acetaminophen* (Acetaminophen*) 500 MG Extra Strength Tablet, 500 MG PO Q4H PRN for PAIN AND OR ELEVATED TEMP, #30 TAB Prov:SARI BIRCH DO 05/20/18 Acetaminophen with Codeine (Acetaminophen-Cod #3 Tablet) 1 Each Tablet, 1 TAB PO Q6H PRN for PAIN, #7 TAB Prov:ANGELIABIBI 11/06/17 Ibuprofen* (Ibuprofen*) 600 Mg Tablet, 600 MG PO Q6, #30 TAB 0 Refills Prov:GEMINI TALAVERA MD 02/13/17 Allergies Allergies: Coded Allergies: No Known Allergy (Unverified , 11/02/17) PMhx/Soc Medical and Surgical Hx: pt denies Medical Hx, pt denies Surgical Hx Hx Alcohol Use: No Hx Substance Use: No Hx Tobacco Use: No Smoking Status: Never smoker Physical Exam Vitals Vital Signs Date Temp Pulse Resp B/P (MAP) Pulse Ox O2 O2 Flow FiO2 Time Delivery Rate 05/20/18 98.8 74 18 157/66 98 12:32 (96) Physical Exam Const: No acute distress Resp: Clear to auscultation bilaterally Cardio: Regular rate and rhythm, no murmurs Abd: Soft, non tender, non distended. Normal bowel sounds Skin: No petechiae or rashes Back: No midline or flank tenderness Ext: No cyanosis, or edema Neur: Awake and alert Psych: Normal Mood and Affect Result Diagram: 05/20/18 1807 Results 24 hrs Laboratory Tests Test 05/20/18 14:57 White Blood Count 9.9 10^3/ul Red Blood Count 4.36 10^6/ul Hemoglobin 13.3 g/dl Hematocrit 40.0 % Mean Corpuscular Volume 91.7 fl Mean Corpuscular Hemoglobin 30.5 pg Mean Corpuscular Hemoglobin Concent 33.3 g/dl Red Cell Distribution Width 12.9 % Platelet Count 293 10^3/UL Mean Platelet Volume 9.3 fl Immature Granulocytes % 0.300 % Neutrophils % 66.3 % Lymphocytes % 28.0 % Monocytes % 4.5 % Eosinophils % 0.6 % Basophils % 0.3 % Nucleated Red Blood Cells % 0.0 /100WBC Immature Granulocytes # 0.030 10^3/ul Neutrophils # 6.5 10^3/ul Lymphocytes # 2.8 10^3/ul Monocytes # 0.4 10^3/ul Eosinophils # 0.1 10^3/ul Basophils # 0.0 10^3/ul Nucleated Red Blood Cells # 0.0 10^3/ul Urine Color YELLOW Urine Clarity SLIGHTLY CLOUDY Urine pH 5.0 Urine Specific [place] 1.027 Urine Ketones NEGATIVE mg/dL Urine Nitrite NEGATIVE mg/dL Urine Bilirubin NEGATIVE mg/dL Urine Urobilinogen NEGATIVE mg/dL Urine Leukocyte Esterase NEGATIVE Madeline/ul Urine Microscopic RBC 26 /HPF Urine Microscopic WBC 5 /HPF Urine Squamous Epithelial Cells FEW /HPF Urine Bacteria FEW /HPF Urine Hemoglobin 3+ mg/dL Urine Glucose NEGATIVE mg/dL Urine Total Protein NEGATIVE mg/dl Beta HCG, Quantitative 516.6 mIU/ml Procedures/MDM Medical Decision Making: Differential diagnosis includes but not limited to spontaneous , ovarian cyst, uterine fibroid, ectopic . Patient appeared well on physical examination. CBC showed no anemia, no elevated WBC to suggest systemic infection. UA did not indicate infection Beta hCG level was 516 Pelvic ultrasound showed of unknown location. There was no intrauterine noted. Also no evidence of adnexal mass. There was thickened endometrial stripe noted to be 1.5 cm. No free fluid noted. Patient's vital signs noted to be stable. Patient appeared well. Patient advised that she will need to return to the ER in 48 hours for repeat beta-hCG level. Patient advised to follow up with PCP in 1-2 days. Patient advised to return to ED for new or worsening symptoms. Patient stable on discharge from the ED. Disclaimer: Inadvertent spelling and grammatical errors are likely due to EHR/dictation software use and do not reflect on the overall quality of patient care. Also, please note that the electronic time recorded on this note does not necessarily reflect the actual time of the patient encounter. Departure Diagnosis: Primary Impression: Vaginal bleeding in patient at less than 20 weeks ges... Condition: Fair Patient Instructions: Bleeding During Early Referrals: [facility] YOU HAVE RECEIVED A MEDICAL SCREENING EXAM AND THE RESULTS INDICATE THAT YOU DO NOT HAVE A CONDITION THAT REQUIRES URGENT TREATMENT IN THE EMERGENCY DEPARTMENT. FURTHER EVALUATION AND TREATMENT OF YOUR CONDITION CAN WAIT UNTIL YOU ARE SEEN IN YOUR DOCTORS OFFICE WITHIN THE NEXT 1-2 DAYS. IT IS YOUR RESPONSIBILITY TO MAKE AN APPOINTMENT FOR FOLOW-UP CARE. IF YOU HAVE A PRIMARY DOCTOR --you should call your primary doctor and schedule an appointment IF YOU DO NOT HAVE A PRIMARY DOCTOR YOU CAN CALL OUR PHYSICIAN REFERRAL HOTLINE AT IF YOU CAN NOT AFFORD TO SEE A PHYSICIAN YOU CAN CHOSE FROM THE FOLLOWING [facility] [address] [facility] [address] [facility] [address] [facility] [address] [facility] [address] [facility]. [facility]. [address] Additional Instructions: Llame al doctor MAANA y saira omer DOUGLAS PARA DENTRO DE 1-2 HERMOSILLO.Dgale a la secretaria que nosotros le instruimos hacer esta douglas.Avise o llame si toro condicin se empeora antes de la douglas. Regresa aqui si peor o no mejor. Return in ER in 2 days for repeat HCG level SARI BIRCH DO May 20, 2018 16:57
== END 2018-05-20 17:02 | disposition home or self-care (01) ==
LOC: FTE 12:19
DX: O20.9 Hemorrhage in early pregnancy, unspecified (principal); R10.2 Pelvic and perineal pain; Z3A.01 Less than 8 weeks gestation of pregnancy
CPT/HCPCS: 36415; 76801; 76817; 81001; 84702; 85025; 86900; 86901; Z7502

== ENCOUNTER → 2018-10-01 | Outpatient (CLI) | payer MEDICAID ==
[~2018-10-01] MED LIST changes: +ACET-141 PO; +ACET500C5 PO; +CEPH-443 PO; +LACT1CAP57 PO
== END | disposition home or self-care (01) ==
LOC: U/S 16:13
PROVIDERS: ATTEND Obstetrics & Gynecology
DX: O20.0 Threatened abortion (principal); Z3A.00 Weeks of gestation of pregnancy not specified
CPT/HCPCS: 76801

== ENCOUNTER 2018-10-16 15:47 | Emergency (ER) | payer MEDICAID ==
[~2018-10-16] VITALS: Ht 152.4 cm; Wt 52.7 kg
[2018-10-16 15:54] VITALS: Ht 152.4 cm; Wt 52.7 kg
--- NOTE | 2018-10-16 18:25 | ERD ---
ER Documentation Chief Complaint Chief Complaint s/p x2 weeks, c/o lower back/pelvic pain, with spotting HPI Patient is a 33-year-old female presenting to the ED for lower back pain and pelvic pain. Patient states she was seen 2 weeks ago for spontaneous . She was supposed to follow-up for reexamination but never did. Patient states she believes she is no longer and that she is just having a little di scomfort. Patient's vitals are stable. Patient states her discomfort is a 6 out of 10. Patient does state she has some dysuria. ROS All systems reviewed and are negative except as per history of present illness. Medications Home Meds Active Scripts Acetaminophen* (Tylophen*) 500 Mg Capsule, 1 CAP PO Q6H PRN for PAIN AND OR ELEVATED TEMP, #20 CAP Prov:FREDDY ZHAO PA-C 10/16/18 Lactobacillus Rhamnosus* (Culturelle*) 1 Each Cap.sprink, 1 CAP PO DAILY for 30 Days, CAP Prov:FREDDY ZHAO PA-C 10/16/18 Cephalexin* (Keflex*) 500 Mg Capsule, 500 MG PO BID for 7 Days, CAP Prov:FERDDY ZHAO PA-C 10/16/18 Acetaminophen* (Acetaminophen*) 500 MG Extra Strength Tablet, 500 MG PO Q4H PRN for PAIN AND OR ELEVATED TEMP, #30 TAB Prov:SARI BIRCH DO 05/20/18 Acetaminophen with Codeine (Acetaminophen-Cod #3 Tablet) 1 Each Tablet, 1 TAB PO Q6H PRN for PAIN, #7 TAB Prov:BIBI GALAN 11/06/17 Ibuprofen* (Ibuprofen*) 600 Mg Tablet, 600 MG PO Q6, #30 TAB 0 Refills Prov:GEMINI TALAVERA MD 02/13/17 Allergies Allergies: Coded Allergies: No Known Allergy (Unverified , 11/02/17) PMhx/Soc Medical and Surgical Hx: pt denies Medical Hx, pt denies Surgical Hx Hx Alcohol Use: No Hx Substance Use: No Hx Tobacco Use: No Smoking Status: Never smoker FmHx Family History: No diabetes, No coronary disease, No other Physical Exam Vitals Vital Signs Date Temp Pulse Resp B/P (MAP) Pulse Ox O2 O2 Flow FiO2 Time Delivery Rate 10/16/18 98.7 80 18 123/59 95 15:54 (80) Physical Exam GENERAL: The patient is well-appearing, well-nourished, in no acute distress CHEST: Clear to auscultation bilaterally. There are no rales, wheezes or rhonchi. HEART: Regular rate and rhythm. No murmurs, clicks, rubs or gallops. ABDOMEN:Soft, nontender and nondistended. Good bowel sounds. No rebound or guarding. No gross peritonitis. No gross organomegaly or masses. No Gay sign or McBurney point tenderness. BACK: No midline or flank tenderness. Result Diagram: 10/16/18 1644 Results 24 hrs Laboratory Tests Test 10/16/18 16:44 10/16/18 17:02 10/16/18 17:04 White Blood Count 7.5 10^3/ul Red Blood Count 3.85 10^6/ul Hemoglobin 11.8 g/dl Hematocrit 36.2 % Mean Corpuscular Volume 94.0 fl Mean Corpuscular Hemoglobin 30.6 pg Mean Corpuscular 32.6 g/dl Hemoglobin Concent Red Cell Distribution Width 12.7 % Platelet Count 355 10^3/UL Mean Platelet Volume 9.3 fl Immature Granulocytes % 0.300 % Neutrophils % 61.3 % Lymphocytes % 31.6 % Monocytes % 4.8 % Eosinophils % 1.6 % Basophils % 0.4 % Nucleated Red Blood Cells % 0.0 /100WBC Immature Granulocytes # 0.020 10^3/ul Neutrophils # 4.6 10^3/ul Lymphocytes # 2.4 10^3/ul Monocytes # 0.4 10^3/ul Eosinophils # 0.1 10^3/ul Basophils # 0.0 10^3/ul Nucleated Red Blood Cells # 0.0 10^3/ul Beta HCG, Quantitative 15.0 mIU/ml POC Beta HCG, Qualitative NEGATIVE Bedside Urine pH (LAB) 6.0 Bedside Urine Protein (LAB) 1+ Bedside Urine Glucose (UA) Negative Bedside Urine Ketones (LAB) Trace Bedside Urine Blood 3+ Bedside Urine Nitrite (LAB) Negative Bedside Urine Leukocyte Esterase 1+ (L Procedures/MDM ED course: The patient was stable throughout the ED course. The patient and/or family informed of laboratory and diagnostic imaging results throughout the ED course. Diagnostic imaging: Read by radiologist Dr. Moore PROCEDURE: US Pelvis. CLINICAL INDICATION: Abnormal vaginal bleeding. TECHNIQUE: The pelvis was evaluated with transabdominal and transvaginal s onography in the axial and sagittal planes. COMPARISON: OB ultrasound dated 10/01/2018 which demonstrated a single intrauterine gestational sac with pole and no heart motion. FINDINGS: Uterus: 8.1 x 3.4 x 2.4 cm. Endometrium: 7.2 mm. There is no intrauterine gestational sac. Right ovary: 2.4 x 1.9 x 2.0 cm. Left ovary: 2.0 x 1.2 x 1.1 cm. Uterine masses: There is an anterior hypoechoic fibroid in the uterus measuring 1.4 x 0.8 x 1.4 cm. There is no other uterine mass. Ovarian masses: None. Color Doppler and pulsed Doppler sonography demonstrate normal flow to both ovaries. Other pelvic masses: None. Free fluid: None. IMPRESSION: 1. No intrauterine gestational sac. Findings consistent with recent spontaneous . 2. Anterior fibroid in the uterus measuring 1.4 cm. 3. Otherwise unremarkable pelvic ultrasound. . Medical decision makin-year-old female presented to ED for vaginal spotting and lower back pain and abdominal pain. Patient was seen in the ED 2 weeks ago for spontaneous . Patient was supposed to follow-up for beta-hCG and ultrasound recheck. Patient did not return to the ED. Physical exam was unremarkable. Patient's ultrasound showed no and uterine gestational sac and patient's beta hCG was 15. Patient's UA indicated the patient had a UTI. Patient remained stable the entire ED visit. At this time I have low suspicion for internal bleed, ectopic , retention of tissue, uterine rupture, pyelonephritis, ovarian torsion. Patient will be treated outpatient with Keflex. Advised patient that if symptoms worsen return to ED immediately. Advised the patient she needs follow-up with a primary care provider in 1 to 2 days regarding this visit. The patient is agreement treatment plan all questions were answered upon discharge Prescription for home: Keflex Probiotic Acetaminophen I have discussed with the patient proper use and common side effects to expert with the medication . I advised the patient/family to speak with the pharmacist dispensing the medication to be advised of any potential drug interactions with other medication or supplements they may be taking. Discharge: At this time, patient is stable for discharge and outpatient management. I have instructed the patient to follow-up with his\her primary care physician in 1 to 2 days. I have discussed with the patient the possibility of needing to see a specialist for further work-up and imaging studies if symptoms persist. I have instructed the patient to promptly return to the ER for any new or worsening symptoms including increased pain, fever, nausea, vomiting, weakness or LOC. The patient and\or family expressed understanding of and agreement with this plan. All questions were answered. Home care instructions were provided. Disclaimer: Inadvertent spelling and grammatical errors are likely due to EHR\dictation software use and do not reflect on the overall quality of patient care. Also, please note that the electronic time recorded on the note does not necessarily reflect the actual time of the patient encounter. Departure Diagnosis: Primary Impression: UTI (urinary tract infection) Urinary tract infection type: site unspecified Hematuria presence: with hematuria Qualified Codes: N39.0 - Urinary tract infection, site not specified; R31.9 - Hematuria, unspecified Condition: Stable Patient Instructions: Understanding Urinary Tract Infections (UTIs) Referrals: [facility] YOU HAVE RECEIVED A MEDICAL SCREENING EXAM AND THE RESULTS INDICATE THAT YOU DO NOT HAVE A CONDITION THAT REQUIRES URGENT TREATMENT IN THE EMERGENCY DEPARTMENT. FURTHER EVALUATION AND TREATMENT OF YOUR CONDITION CAN WAIT UNTIL YOU ARE SEEN IN YOUR DOCTORS OFFICE WITHIN THE NEXT 1-2 DAYS. IT IS YOUR RESPONSIBILITY TO MAKE AN APPOINTMENT FOR FOLOW-UP CARE. IF YOU HAVE A PRIMARY DOCTOR --you should call your primary doctor and schedule an appointment IF YOU DO NOT HAVE A PRIMARY DOCTOR YOU CAN CALL OUR PHYSICIAN REFERRAL HOTLINE AT IF YOU CAN NOT AFFORD TO SEE A PHYSICIAN YOU CAN CHOSE FROM THE FOLLOWING [facility] CLINICS [facility] [address] [facility] [address] [email or web address] [address] [facility] [address] [facility] [address] [facility] [facility]. [address] [facility]. [facility] YOU HAVE RECEIVED A MEDICAL SCREENING EXAM AND THE RESULTS INDICATE THAT YOU DO NOT HAVE A CONDITION THAT REQUIRES URGENT TREATMENT IN THE EMERGENCY DEPARTMENT. FURTHER EVALUATION AND TREATMENT OF YOUR CONDITION CAN WAIT UNTIL YOU ARE SEEN IN YOUR DOCTORS OFFICE WITHIN THE NEXT 1-2 DAYS. IT IS YOUR RESPONSIBILITY TO MAKE AN APPOINTMENT FOR FOLOW-UP CARE. IF YOU HAVE A PRIMARY DOCTOR --you should call your primary doctor and schedule and appointment IF YOU DO NOT HAVE A PRIMARY DOCTOR YOU CAN CALL OUR PHYSICIAN REFERRAL HOTLINE AT . IF YOU CAN NOT AFFORD TO SEE A PHYSICIAN YOU CAN CHOSE FROM THE FOLLOWING [facility] INSTITUTIONS: [facility] [address] [place] [address] [facility] [address] [place] [address] [facility] + [facility] [address] [place] [address] Additional Instructions: Llame al doctor MAANA y saira omer DOUGLAS PARA DENTRO DE 1-2 HERMOSILLO.Dgale a la secretaria que nosotros le instruimos hacer esta douglas.Avise o llame si toro condicin se empeora antes de la douglas. Regresa aqui si peor o no mejor. FREDDY ZHAO PA-C Oct 16, 2018 18:25
[2018-10-16 18:37] VITALS: BP 109/57; PULSE 71; RESP 16
== END 2018-10-16 18:37 | disposition home or self-care (01) ==
LOC: FTE 15:47
DX: N39.0 Urinary tract infection, site not specified (principal)
CPT/HCPCS: 36415; 76830; 76856; 81003; 81025; 84702; 85025; 86900; 86901; Z7502

== ENCOUNTER 2018-12-19 15:40 | Emergency (ER) | payer MEDICAID ==
[~2018-12-19] VITALS: Ht 152.4 cm; Wt 52.0 kg
[~2018-12-19 15:40] MED LIST changes: +NAPR-985 PO
[2018-12-19 15:42] VITALS: BP 112/56; PULSE 74; RESP 20; Ht 152.4 cm; Wt 52.0 kg
== END 2018-12-19 19:14 | disposition home or self-care (01) ==
LOC: FTE 15:40
DX: D25.9 Leiomyoma of uterus, unspecified (principal)
CPT/HCPCS: 36415; 76830; 76856; 80048; 81001; 84702; 85025